=== PATIENT | female | born 1995 | race Caucasian/White ===

== ENCOUNTER 2016-09-09 00:32 | Emergency (ER) | payer BC, OTHER ==
[~2016-09-09] VITALS: Ht 185.4 cm; Wt 82.9 kg
[~2016-09-09 00:32] MED LIST: ALBU1AER9 INH
[2016-09-09 00:35] VITALS: TEMP 36.7; Ht 185.4 cm; Wt 82.9 kg
[2016-09-09] MEDS ORDERED: XYLOCAINE 1%/SOD BICARB 20 ML VIAL INFIL ONE (01:00)
[2016-09-09 01:25] VITALS: BP 134/66; PULSE 82; O2SAT 97
--- NOTE | 2016-09-09 01:44 | EMERGENCY ROOM VISIT NOTE ---
ED Visit Note First contact with patient: 00:52 CHIEF COMPLAINT: Left knee laceration HISTORY OF PRESENT ILLNESS: This 21 yo patient presents to the emergency department with family after cutting the left lateral knee on the lawnmower when she tripped over it. The bleeding has not stopped. Denies weakness or numbness of the extremity. patient has full range of motion of the extremity The patient rates the pain as mild and 2/10. The patient denies any other injuries. The patient's tetanus shot is up to date. REVIEW OF SYSTEMS: A 6 system review of systems was completed with positives and pertinent negatives listed in the HPI. ALLERGIES: Amoxil MEDICATIONS: none PMH: Asthma SOCIAL HISTORY: no drug use PHYSICAL EXAM: Vital Signs: Reviewed Nurse's notes, vital signs stable. GENERAL : pleasant female, in no acute distress, well developed, well nourished. SKIN : There is a 3 cm long laceration on the left lateral kjnee. The edges gape apart with traction. There is no foreign material in the wound and it looks clean. There is bleeding. No deep structures such as tendons, bones, or significant blood vessels are seen in the base of the wound. Extension and flexion of the extremity is full and strong. Full range of motion of the extremity. Capillary refill less than 2 seconds. Normal sensation to light and sharp touch. EMERGENCY DEPARTMENT COURSE: I examined the patient. Using sterile technique the wound was cleansed with Betadine. 2 ml of 1% buffered lidocaine was used to anesthetize the patient. The area was sterilely draped. Once the patient was anesthetized, the wound was copiously irrigated under pressure with sterile saline. The wound was explored and there were no deep structures injured. The laceration was repaired using 3 simple interrupted 4-0 nylon sutures. The patient tolerated the procedure well. Hemostasis was achieved. The area was cleaned with sterile saline and dressed with bacitracin ointment and bandage. The patient was discharged home in good condition. Differential diagnosis includes laceration, tendon injury, vascular injury and other etiologies were considered. DIAGNOSIS: left knee laceration DISCHARGE INSTRUCTIONS & TREATMENT: as below Problem List Medical Problems: (1) Asthma Status: Chronic Current/Historical Medications No Active Prescriptions or Reported Meds Allergies Coded Allergies: Amoxicillin (Verified Allergy, Unknown, TONGUE SWELLING, 09/09/16) Vital Signs Date Time Temp Pulse Resp B/P (MAP) Pulse Ox O2 Delivery O2 Flow Rate FiO2 09/09/16 01:25 82 16 134/66 97 09/09/16 00:35 36.7 88 16 134/66 98 Room Air Medications Administered Medications (Trade) Dose Ordered Sig/[place] Route Start Time Stop Time Status Last Admin Dose Admin Lidocaine HCl (Buffered Lidocaine 1% Inj) 20 ml ONE ONCE INFIL 09/09/16 01:00 09/09/16 01:01 DC 09/09/16 01:00 20 ML Departure Information Impression Primary Impression: Laceration of left knee Dispostion Home / Self-Care Condition GOOD Prescriptions No Active Prescriptions or Reported Meds Forms HOME CARE DOCUMENTATION FORM, IMPORTANT VISIT INFORMATION Patient Instructions My [facility], ED Laceration All Additional Instructions Keep wound clean and dry. Do not allow any crusting or dried blood to accumulate on sutures. If this occurs, use a 1:1 solution of hydrogen peroxide/ water on a Q-tip to clean the wound. Use an antibiotic ointment for 3-4 days, then let wound dry. Suture removal in 10-12 days. Return sooner for any signs of infection (increasing redness, swelling, drainage). Ice and elevate for swelling and pain. Ibuprofen 600 mg and Tylenol 1000 mg every 6 hrs for pain. Keep covered when in sun until sutures removed then SPF 50 or higher for one year. Vitamin E oil if desired two weeks after suture removal for reduction of scar
== END 2016-09-09 01:26 | disposition home or self-care (01) ==
LOC: C.EDB 00:32
DX: S81.012A Laceration without foreign body, left knee, initial encounter (principal); W22.8XXA Striking against or struck by other objects, initial encounter; J45.909 Unspecified asthma, uncomplicated

== ENCOUNTER 2016-11-08 15:52 | Emergency (ER) | payer BC, OTHER ==
[~2016-11-08] VITALS: Ht 185.4 cm; Wt 84.3 kg
[2016-11-08 15:55] VITALS: TEMP 36.4; Ht 185.4 cm; Wt 84.3 kg
--- NOTE | 2016-11-08 16:14 | DIAGNOSTIC IMAGING REPORT ---
L HAND MIN 3 VIEWS ROUTINE CLINICAL HISTORY: in d pod waiting room trauma. Pain. COMPARISON: None. DISCUSSION: The bones and joint spaces appear intact. There is no evidence of fracture, dislocation or bony disease. Mild soft tissue edema IMPRESSION: No acute bony abnormality. Mild soft tissue edema. The above report was generated using voice recognition software. It may contain grammatical, syntax or spelling errors. Electronically signed by: Octavio Beck M.D. 11/08/2016 4:13 PM Dictated Date/Time: 11/08/2016 4:13 PM
--- NOTE | 2016-11-08 17:01 | EMERGENCY ROOM VISIT NOTE ---
ED Visit Note First contact with patient: 16:35 CHIEF COMPLAINT: Finger injury HISTORY OF PRESENT ILLNESS: This 21-year-old female patient presents to the emergency department 1 day after injuring the left second and third fingers she accidentally shut a heavy, wooden door on them. The patient rates the pain as moderate, worsening since yesterday and /10. The patient has limited range of motion of the fingers due to pain. She states the swelling and bruising has been worsening since last night. No numbness or tingling. No lacerations. No other injuries. The patient has not had previous fracture to this finger. The patient has taken Excedrin for the pain, which does help minimally, and has been using an ice pack. REVIEW OF SYSTEMS: A 6 system review of systems was completed with positives and pertinent negatives in the HPI. 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 The patient denies drug, alcohol, tobacco use. PHYSICAL EXAM: Vital Signs: Reviewed Nurse's notes, vital signs stable. GENERAL : This is a 21-year-old white female, in no acute distress, but appears to be in pain, well-developed, well-nourished. MUSCULOSKELETAL: There is no deformity of the left second or third fingers. The patient has very limited flexion and extension of the left second and third fingers due to pain. Strength to resistance is 2+, limited due to pain. The DIP joint of both fingers is maximally tender. There is no ligamentous instability. There is no laceration. Capillary refill less than 2 seconds. No tenderness of the remaining fingers or hand. Full range of motion of the wrist. NEURO: Alert and oriented to person, place, and time. Normal sensation to light and sharp touch. RADIOLOGY: X-Ray Left Hand: L HAND MIN 3 VIEWS ROUTINE CLINICAL HISTORY: in d pod waiting room trauma. Pain. COMPARISON: None. DISCUSSION: The bones and joint spaces appear intact. There is no evidence of fracture, dislocation or bony disease. Mild soft tissue edema IMPRESSION: No acute bony abnormality. Mild soft tissue edema. EMERGENCY DEPARTMENT COURSE: I examined the patient. An x-ray of the left hand was reviewed by myself and radiologist and showed soft tissue edema, but no fracture or dislocation. I discussed options for immobilization and treatment at this time including metal splints and gregory taping. The patient elected for finger splints. The fingers were immobiziled by metal finger splints under my direction and the position was satisfactory. Neurovascular status rechecked and intact. The patient was discharged home in good condition. Patient was found to have normal blood pressure on screening and does not require follow-up. I attest that I have personally reviewed the patient's current medication list. DIFFERENTIAL DIAGNOSIS: Fracture, contusion, crush injury, sprain or strain, and others. DIAGNOSIS: Finger contusions of the left second and third fingers from crush injury DISCHARGE INSTRUCTIONS: ORTHOPEDIC INSTRUCTIONS: Ibuprofen(Motrin, Advil) may be used for fever or pain. Use 600mg every six hours as needed. Take with food. Avoid using more than 2400mg in a 24 hour period. Do not use 2400mg per day for more than three consecutive days without physician direction. Prolonged inappropriate use can lead to stomach upset or ulcers. (AND/OR) Acetaminophen(Tylenol) may be used for fever or pain. Use 1000mg every six hours as needed. Avoid using more than 3000mg in a 24 hour period. Ice compresses for 20 minutes at a time four times daily for 2-3 days. Rest and elevate your injury. Wear the finger splints daily until pain improves. You should remove your fingers from the splints several times per day and work on range of motion exercises. You may want to consider gregory-taping them together to help with support. Return to the ER immediately for any numbness, tingling, severe pain, extreme swelling in the extremity or as needed. No softball tomorrow. Return to play as tolerated/as directed by your athletic trainers. Call [facility], [phone], if no improvement in 1-2 weeks, to arrange follow up for your injury. Follow-up with your primary care physician in 2 to 3 days for a recheck of your current condition. Problem List Medical Problems: (1) Asthma Status: Chronic Current/Historical Medications No Active Prescriptions or Reported Meds Allergies Coded Allergies: Amoxicillin (Verified Allergy, Unknown, TONGUE SWELLING, 09/09/16) Vital Signs Date Time Temp Pulse Resp B/P (MAP) Pulse Ox O2 Delivery O2 Flow Rate FiO2 11/08/16 17:26 78 20 124/68 98 9/24/17 15:55 36.4 57 18 125/46 100 Room Air Departure Information Impression Primary Impression: Finger contusion Dispostion Home / Self-Care Condition GOOD Prescriptions No Active Prescriptions or Reported Meds Referrals Octavio Wolf M.D. (PCP) [facility] Patient Instructions ED Crush Injury Finger No Fx, [facility] Additional Instructions ORTHOPEDIC INSTRUCTIONS: Ibuprofen(Motrin, Advil) may be used for fever or pain. Use 600mg every six hours as needed. Take with food. Avoid using more than 2400mg in a 24 hour period. Do not use 2400mg per day for more than three consecutive days without physician direction. Prolonged inappropriate use can lead to stomach upset or ulcers. (AND/OR) Acetaminophen(Tylenol) may be used for fever or pain. Use 1000mg every six hours as needed. Avoid using more than 3000mg in a 24 hour period. Ice compresses for 20 minutes at a time four times daily for 2-3 days. Rest and elevate your injury. Wear the finger splints daily until pain improves. You should remove your fingers from the splints several times per day and work on range of motion exercises. You may want to consider gregory-taping them together to help with support. Return to the ER immediately for any numbness, tingling, severe pain, extreme swelling in the extremity or as needed. No softball tomorrow. Return to play as tolerated/as directed by your athletic trainers. Call [facility], [phone], if no improvement in 1-2 weeks, to arrange follow up for your injury. Follow-up with your primary care physician in 2 to 3 days for a recheck of your current condition. Problem Qualifiers Primary Impression: Finger contusion Encounter type: initial encounter Finger: index finger Damage to nail status: without damage Laterality: left Qualified Codes: S60.022A - Contusion of left index finger without damage to nail, initial encounter
[2016-11-08 17:26] VITALS: BP 124/68; PULSE 78; O2SAT 98
== END 2016-11-08 17:26 | disposition home or self-care (01) ==
LOC: C.EDB 15:53 → C.EDD 17:26
DX: S60.022A Contusion of left index finger without damage to nail, initial encounter (principal); S60.032A Contusion of left middle finger without damage to nail, initial encounter; S67.191A Crushing injury of left index finger, initial encounter; S67.193A Crushing injury of left middle finger, initial encounter; W22.8XXA Striking against or struck by other objects, initial encounter; Y93.89 Activity, other specified; Y99.8 Other external cause status; J45.909 Unspecified asthma, uncomplicated